=== PATIENT | male | born 1950 | race Caucasian/White ===

== ENCOUNTER 2018-02-23 18:02 | Emergency (ER) | payer OTHER ==
[~2018-02-23] VITALS: Wt 65.8 kg
[~2018-02-23 18:02] MED LIST: ADVAIR 250/501 EA INH; BACLOFEN20 MG PO; CIPROFLOXACIN500 MG PO; COMBIVENT1 AR1 IH; COMBIVENT1 AR1 INH; HYDROCODONE BIT1 T11 PO; HYDROCODONE BIT1 T12 PO; KLONOPIN1 MG PO; LOPRESSOR50 MG PO; PROTONIX40 MG PO; SEPTRA DS 800 M1 TAB PO; VICO10300 PO; ZANAFLEX4 M1 PO
[2018-02-23 19:44] LABS: BASO # 0.1 10*3/uL (0.0-0.1); BASO % 0.5 % (0.0-1.0); EOS # 0.2 10*3/uL (0.0-0.4); EOS % 2.1 % (1.0-4.0); HEMATOCRIT 38.4 % (42.0-52.0); HEMOGLOBIN 12.4 g/dl (14.0-18.0); LYMPH # 1.3 10*3/uL (1.3-4.4); LYMPH % 12.2 % (27.0-41.0); MEAN CELL VOLUME 79.8 fl (80.0-94.0); MEAN CORPUSCULAR HGB 25.8 pg (27.0-31.0); MEAN CORPUSCULAR HGB CONC 32.3 g/dl (33.0-37.0); MEAN PLATELET VOLUME 9.5 fl (9.6-12.3); MONO # 0.7 10*3/uL (0.1-1.0); MONO % 6.3 % (3.0-9.0); NEUT # 8.7 10*3/uL (2.3-7.9); NEUT % 78.5 % (47.0-73.0); PLATELET COUNT AUTOMATED 355 10*3/uL (130-400); RED BLOOD COUNT 4.81 10*6/uL (4.50-5.90); RED CELL DISTRI WIDTH 15.6 % (0-14.5)
[2018-02-23 19:45] LABS: BILIRUBIN NEGATIVE (NEGATIVE); BLOOD 1+ (NEGATIVE); CLARITY CLOUDY (CLEAR); COLOR YELLOW (YELLOW); GLUCOSE NEGATIVE (NEGATIVE); KETONE NEGATIVE (NEGATIVE); LEUKO ESTERASE 2+ (NEGATIVE); NITRITE NEGATIVE (NEGATIVE); PH >= 9.0 (5.0-9.0); UROBILINOGEN 0.2 E.U./dl (0.2-1.0)
[2018-02-23 19:56] LABS: BACTERIA 4+
[2018-02-23 19:58] LABS: CALCIUM OXALATE CRYSTALS 3+; WBC 16-20 wbc/hpf (0-5)
[2018-02-23 20:01] LABS: ALBUMIN 2.5 gm/dl (3.1-4.5); ALKALINE PHOSPHATASE 74 U/L (45-117); BUN 12 mg/dl (7-24); CHLORIDE 103 mmol/L (98-107); CREATININE 1.15 mg/dL (0.70-1.30); LIPASE 56 U/L (73-393); POTASSIUM 3.9 mmol/L (3.5-5.1); SGOT/AST 12 IU/L (3-35); SGPT/ALT 8 U/L (12-78); SODIUM 137 mmol/L (136-145)
[2018-02-23 20:07] LABS: TROPONIN I < 0.015 ng/ml (<0.045)
== END 2018-02-23 23:24 | disposition short-term general hospital (02) ==
LOC: ED 18:02
PROVIDERS: Physician Assistant
DX: N39.0 Urinary tract infection, site not specified (principal); R31.9 Hematuria, unspecified; N13.2 Hydronephrosis with renal and ureteral calculous obstruction; F17.200 Nicotine dependence, unspecified, uncomplicated; Z98.890 Other specified postprocedural states; Z87.442 Personal history of urinary calculi; Z79.899 Other long term (current) drug therapy

== ENCOUNTER → 2018-04-05 | Outpatient (CLI) | payer OTHER ==
[2018-04-05 14:00] LABS: BILIRUBIN NEGATIVE (NEGATIVE); BLOOD 3+ (NEGATIVE); CLARITY CLOUDY (CLEAR); COLOR YELLOW (YELLOW); GLUCOSE NEGATIVE (NEGATIVE); KETONE NEGATIVE (NEGATIVE); LEUKO ESTERASE 3+ (NEGATIVE); NITRITE POSITIVE (NEGATIVE)
[2018-04-05 14:40] LABS: BACTERIA 4+; RBC 51-100 rbc/hpf (0-2); WBC 51-100 wbc/hpf (0-5)
== END | disposition home or self-care (01) ==
LOC: LAB 13:36
PROVIDERS: Urology
DX: R82.90 Unspecified abnormal findings in urine (principal)

== ENCOUNTER 2020-04-13 17:16 | Emergency (ER) | payer MEDICARE ==
[~2020-04-13] VITALS: Ht 185.4 cm; Wt 59.0 kg
[2020-04-13 17:41] LABS: HEMATOCRIT 32.9 % (42.0-52.0); MEAN CELL VOLUME 80.2 fl (80.0-94.0); MEAN CORPUSCULAR HGB 25.4 pg (27.0-31.0); MEAN CORPUSCULAR HGB CONC 31.6 g/dl (33.0-37.0); MEAN PLATELET VOLUME 10.5 fl (9.6-12.3); PLATELET COUNT AUTOMATED 180 10*3/uL (130-400); RED CELL DISTRI WIDTH 14.6 % (0-14.5); WHITE BLOOD COUNT 6.6 10*3/uL (4.8-10.8)
[2020-04-13 17:51] LABS: ACT PARTIAL THROMBO TIME 33.1 SECONDS (20.0-32.1); INTERNATIONAL NORM RATIO 1.2 (2.0-3.5)
[2020-04-13 17:58] LABS: ALBUMIN 1.9 gm/dl (3.1-4.5); ALKALINE PHOSPHATASE 203 U/L (45-117); BUN 31 mg/dl (7-24); CHLORIDE 109 mmol/L (98-107); CREATININE 1.59 mg/dL (0.70-1.30); POTASSIUM 3.7 mmol/L (3.5-5.1); SGOT/AST 20 IU/L (3-35); SGPT/ALT 12 U/L (12-78); SODIUM 138 mmol/L (136-145); TOTAL PROTEIN 6.7 gm/dL (6.4-8.2)
[2020-04-13 17:59] LABS: TROPONIN I < 0.015 ng/ml (<0.045)
[2020-04-13 18:02] LABS: TOTAL CELLS COUNTED 100 #CELLS
[2020-04-13 18:03] LABS: BURR CELLS MODERATE; PLATELET SUFFICIENCY NORMAL (NORMAL); ROULEAUX SLIGHT; TOXIC GRANULATION SLIGHT
[2020-04-13 18:11] LABS: ARTERIAL BLOOD GAS PH 7.426 (7.35-7.45)
[2020-04-13 18:12] LABS: ABG BASE EXCESS -6.8 mmol/L (-2.0-2.0)
[2020-04-13 19:13] LABS: CLARITY SL CLOUDY (CLEAR); COLOR ORANGE (YELLOW)
[2020-04-13 19:14] LABS: BILIRUBIN 1+ (NEGATIVE); BLOOD NEGATIVE (NEGATIVE); GLUCOSE TRACE (NEGATIVE); KETONE TRACE (NEGATIVE); LEUKO ESTERASE 1+ (NEGATIVE); NITRITE POSITIVE (NEGATIVE); SPECIFIC GRAVITY 1.015 (1.005-1.030)
[2020-04-13 19:20] LABS: BACTERIA 3+; MUCOUS TRACE; RBC 0-2 rbc/hpf (0-2); WBC TNTC wbc/hpf (0-5)
== END 2020-04-13 23:54 | disposition short-term general hospital (02) ==
LOC: ED 17:16
PROVIDERS: Emergency Medicine
DX: I48.92 Unspecified atrial flutter (principal); A41.9 Sepsis, unspecified organism; L89.109 Pressure ulcer of unspecified part of back, unspecified stage; I95.9 Hypotension, unspecified; M46.28 Osteomyelitis of vertebra, sacral and sacrococcygeal region; N39.0 Urinary tract infection, site not specified; F41.9 Anxiety disorder, unspecified; F17.200 Nicotine dependence, unspecified, uncomplicated; Z79.899 Other long term (current) drug therapy; Z79.2 Long term (current) use of antibiotics